=== PATIENT | male | born 1980 | race Two or more races ===

== ENCOUNTER 2017-09-18 03:40 | Emergency (ER) | payer OTHER ==
[2017-09-18 03:55] VITALS: TEMP 98.1
[2017-09-18] MEDS ORDERED: ceFAZolin 2 GM/DEXTROSE 100 ML IV ONE (03:59)
[2017-09-18] MEDS ORDERED: VANCOMYCIN HCL/NORMAL SALINE 250 ML IV ONE (03:59)
--- NOTE | 2017-09-18 04:05 | EDPHY ---
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 Over the last few days the redness has spread to his forearm and now to his arm in the form of a streak. This is painful to the touch. He has not had any fevers or chills, nausea or vomiting. He feels well otherwise. He has no prior history of similar. REVIEW OF SYSTEMS Constitutional: No fever, no chills. Eyes: No discharge. ENT: No sore throat. Cardiovascular: No chest pain, no palpitations. Respiratory: No cough, no shortness of breath. Gastrointestinal: No abdominal pain, no vomiting. Genitourinary: No hematuria. Musculoskeletal: No back pain. Skin: No rashes. Neurological: No headache. PMHx: Healthy Soc Hx: Works as a electronics system mechanic, no drug use PHYSICAL General Appearance: Alert, no distress Eyes: Pupils equal and round no pallor or injection ENT, Mouth: Mucous membranes moist Respiratory: There are no retractions, lungs are clear to auscultation Cardiovascular: Regular rate and rhythm Gastrointestinal: Abdomen is soft and non-tender, no masses, bowel sounds normal Neurological: A&O, moves all extremities Skin: Warm and dry, no rashes Musculoskeletal: Neck is supple non tender Extremities: Right 2nd MCP on dorsal surface there is a 1 cm laceration with surrounding erythema, there is lymphangitic streaking of the distal 1/3 forearm with faint streaking of the arm overlying the biceps Psychiatric: Patient is oriented X 3, there is no agitation Source: Patient Exam Limitations: No limitations - Personal History Current Tetanus/Diphtheria Vaccine: Yes Current Tetanus Diphtheria and Acellular Pertussis (TDAP): Yes - Medical/Surgical History Hx Asthma: Yes Hx Chronic Respiratory Disease: No Hx Diabetes: No Hx Cardiac Disease: No Hx Renal Disease: No Hx Cirrhosis: No Hx Alcoholism: No Hx HIV/AIDS: No Hx Splenectomy or Spleen Trauma: No - Social History Smoking Status: Never smoked Constitutional: Initial Vital Signs Temperature (C) 36.7 C 09/18/17 03:40 Heart Rate 88 09/18/17 03:40 Respiratory Rate 16 09/18/17 03:40 Blood Pressure 125/83 H 09/18/17 03:40 O2 Sat (%) 99 09/18/17 03:40 O2 Delivery Mode Room Air Allergies/Adverse Reactions: No Known Allergies Allergy (Unverified 09/18/17 03:52) Home Medications: Medication Instructions Recorded Albuterol Hfa Anes Only [Proair 2 puffs IH QID 09/18/17 Hfa Icu (*)] Clindamycin HCl [Clindamycin] 300 mg PO TID #30 cap 09/18/17 Medical Decision Making Differential Diagnosis: This is a 36-year-old male with no significant past medical history who presents with right arm pain after sustaining a laceration at work on a car 5 days ago. He developed some redness around the laceration and now has an erythematous streak of his forearm with faint streak on his arm. Here, he is very well-appearing, not febrile with no systemic signs of illness. Differential diagnosis includes cellulitis, doubt abscess given no area of fluctuance, doubt tenosynovitis given location of laceration. His tetanus vaccine is up-to-date. He received a dose of Ancef and vancomycin here in the emergency department. His erythema actually improved. He felt well enough to go home. I circled the areas of redness with a marking pen. I explained to him that he needs to monitor this very carefully at home and if the redness worsens in any way or if he gets a fever he needs to come back to the emergency department immediately. He is able to do this and comfortable with this plan. I will prescribe him a course of clindamycin. He injured himself at work and thus should follow up with his worker's Comp doctor, he can also follow up with the hand specialist surgeon partner Dr. Deluca. - Data Points Medications Given: Discontinued Medications Cefazolin Sodium (Cefazolin Syringe) 2 gm in 20 mls @ 200 mls/hr IVP EDNOW ONE PRN Reason: Protocol Stop: 09/18/17 04:35 Last Admin: 09/18/17 04:24 Dose: 20 mls Vancomycin HCl 1 gm/ Sodium (Chloride) 250 mls @ 250 mls/hr IV EDNOW ONE PRN Reason: Protocol Stop: 09/18/17 05:29 Last Admin: 09/18/17 04:31 Dose: 250 mls Departure - Departure Disposition: Home, Routine, Self-Care Clinical Impression: Lymphangitis Cellulitis Qualifiers: Site of cellulitis: extremity Site of cellulitis of extremity: upper extremity Laterality: right Qualified Code(s): L03.113 - Cellulitis of right upper limb Condition: Good Instructions: Lymphangitis (ED) Additional Instructions: Please monitor the redness on your arm. If it is worse or spreads you need to come back to the emergency department. Otherwise please take the antibiotic as prescribed. You need to follow up with your worker's Comp doctor. I have also given you the information for the hand specialist. Referrals: Jerman Deulca MD [Medical Doctor] - As per Instructions Prescriptions: Clindamycin HCl [Clindamycin] 300 mg PO TID #30 cap
[2017-09-18] MEDS ORDERED: VANCOMYCIN 1 GM in NS 250 ML IV ONE (04:30)
[2017-09-18] MEDS ORDERED: ceFAZolin 2 GM/SWFI 2 GM/20 ML SYR IVP ONE (04:30)
[2017-09-18 05:46] VITALS: BP 122/86; PULSE 79; RESP 15; O2SAT 97
== END 2017-09-18 05:46 | disposition home or self-care (01) ==
LOC: EDBD 03:40
DX: L03.113 Cellulitis of right upper limb (principal); J45.909 Unspecified asthma, uncomplicated; W26.8XXA Contact with other sharp object(s), not elsewhere classified, initial encounter; Y99.0 Civilian activity done for income or pay; Y93.89 Activity, other specified
CPT/HCPCS: 96365; J0690; J3370